=== PATIENT | male | born 1990 | race Caucasian/White ===

== ENCOUNTER 2020-07-04 11:32 | Emergency (ER) | payer BC ==
[~2020-07-04] VITALS: Ht 182.9 cm; Wt 106.8 kg
[2020-07-04] MEDS ORDERED: GEMF600T5 PO (11:43)
[2020-07-04] MEDS ORDERED: OMEP40CA97 PO (11:45)
[2020-07-04 12:21] LABS: BASO % 0.4 % (0.0-1.0); EOS % 0.6 % (0.0-3.0); HEMATOCRIT 44.3 % (42.0-52.0); HEMOGLOBIN 14.4 g/dl (13.5-17.5); LYMPH # 1.5 10^3/uL (1.5-5.0); MEAN CORPUSCULAR HEMOGLOBIN 27.9 pg (27.0-33.0); MEAN CORPUSCULAR HGB CONC 32.5 g/dl (32.0-36.5); MEAN CORPUSCULAR VOLUME 85.9 fl (80.0-96.0); MONO # 0.4 10^3/uL (0.0-0.8); MONO % 8.2 % (0.0-5.0); NEUTROPHILS # 2.8 10^3/uL (1.5-8.5); PLATELET COUNT, AUTOMATED 248 10^3/uL (150-450); RED BLOOD COUNT 5.16 10^6/uL (4.30-6.10); WHITE BLOOD COUNT 4.8 10^3/uL (4.0-10.0)
[2020-07-04 12:40] LABS: ALBUMIN 4.4 GM/DL (3.2-5.2); BILIRUBIN,DIRECT 0.1 MG/DL (0.0-0.2); BILIRUBIN,TOTAL 0.6 MG/DL (0.2-1.0); TOTAL PROTEIN 8.1 GM/DL (6.4-8.2)
[2020-07-04] MEDS ORDERED: ONDANSETRON 4MG/2ML VIAL IV ONE (12:45)
[2020-07-04] MEDS ORDERED: MORPHINE 4 MG/ML 1ML VIAL/SYRINGE (J2270) IV ONE ×2 (12:45→14:00)
[2020-07-04 12:48] LABS: BLOOD UREA NITROGEN 20 MG/DL (7-18); CALCIUM LEVEL 9.4 MG/DL (8.5-10.1); CARBON DIOXIDE LEVEL 27 MEQ/L (21-32); CHLORIDE LEVEL 105 MEQ/L (98-107); CREATININE FOR GFR 1.09 MG/DL (0.70-1.30); GLOMERULAR FILTRATION RATE > 60.0 (>60); GLUCOSE, FASTING 89 MG/DL (70-100); POTASSIUM SERUM 4.3 MEQ/L (3.5-5.1); SODIUM LEVEL 136 MEQ/L (136-145)
[2020-07-04] MEDS ORDERED: NS 1,000 ML IV ONE (13:00)
[2020-07-04 13:07] LABS: AMYLASE 117 U/L (25-115); CK-MB VALUE MASS 1.1 NG/ML (<3.6); CPK CREATINE PHOSPHOKINASE 133 U/L (39-308); MB/CK RELATIVE INDEX 0.83 (< OR =4); TROPONIN I < 0.02 NG/ML (< 0.10)
--- NOTE | 2020-07-04 14:02 | REP ---
INDICATION: RUQ pain COMPARISON: None. TECHNIQUE: Real time case scale ultrasound examination using curved array transducer. FINDINGS: Liver demonstrates increased parenchymal echotexture with scattered areas of focal fatty sparing. The pancreas is incompletely evaluated due to interposed bowel gas but visualized portions appear normal. The gallbladder is normal and without gallstones, wall thickening, or pericholecystic fluid. No biliary ductal dilatation is appreciated and the common bile duct measures 5.0 mm diameter. Right kidney is normal in reniform shape without hydronephrosis and measures 11.6 x 6.0 x 7.0 cm. No ascites in the visualized right upper quadrant. IMPRESSION: Hepatosteatosis with areas of focal fatty sparing. Normal gallbladder and biliary system. <Electronically signed by Harsh Huston > 07/04/20 [id number]
[2020-07-04] MEDS ORDERED: ISOVUE-370 76% 100ML VIAL As Ordered ONE (14:32)
[2020-07-04] MEDS ORDERED: KETOROLAC 30 MG/ML 1ML VIAL IV ONE ×2 (14:45→17:15)
--- NOTE | 2020-07-04 15:07 | REP ---
INDICATION: RUQ pain, h/o chronic pancreatitis. COMPARISON: None TECHNIQUE: Axial contrast-enhanced images from the lung bases to the pubic symphysis using 100 cc Isovue 370 intravenous contrast material. Coronal and sagittal reformations obtained. This CT examination was performed using the following dose reduction techniques: Automated exposure control, adjustment of mA and/or kv according to the patient's size, and the use of iterative reconstruction technique. FINDINGS: Lung bases are clear. Visualized heart and pericardium normal. Liver demonstrates fatty infiltration without focal hepatic lesion. Spleen, pancreas, gallbladder, bilateral adrenal glands and kidneys are normal. Incidental 2 mm nonobstructing right renal calculus noted. The enteric system including stomach, small, and large bowel appears normal. No evidence for obstruction or acute inflammatory process. Normal terminal ileum and appendix are identified in the right lower quadrant. Pelvis demonstrates normal bladder and age-appropriate prostate/seminal vesicles. No ascites. No free air. No intraperitoneal or retroperitoneal adenopathy. Abdominal aorta and vasculature appear normal. Musculoskeletal structures are intact and without acute osseous abnormality. IMPRESSION: 1. Hepatosteatosis. 2. 2 mm nonobstructing right renal calculus. 3. No acute abdominopelvic pathology appreciated. <Electronically signed by Harsh Huston > 07/04/20 [id number]
[2020-07-04] MEDS ORDERED: HYDROMORPHONE HCL 0.5 MG/ 0.5 ML SYRINGE (J1170 PER 1) IV ONE (16:00)
[2020-07-04 16:29] VITALS: BP 119/65
[2020-07-04] MEDS ORDERED: NORC1TAB7 PO (17:07)
[2020-07-04] MEDS ORDERED: ONDA4TAB6 PO (17:07)
== END 2020-07-04 17:23 | disposition left against medical advice (07) ==
LOC: EDBD 11:32 → M ED 11:32
DX: Z53.9 Procedure and treatment not carried out, unspecified reason (principal); K76.0 Fatty (change of) liver, not elsewhere classified; N20.0 Calculus of kidney; K85.90 Acute pancreatitis without necrosis or infection, unspecified; R10.11 Right upper quadrant pain; R11.2 Nausea with vomiting, unspecified; R19.7 Diarrhea, unspecified; K21.9 Gastro-esophageal reflux disease without esophagitis; Z87.442 Personal history of urinary calculi; Z79.899 Other long term (current) drug therapy; Z88.0 Allergy status to penicillin
CPT/HCPCS: 36415; 74177; 76705; 80048; 80076; 81001; 82150; 82550; 82553; 83690; 85025; 96361; 96374; 96375; 96376; 99284; J1170; J1885; J2270; J2405; Q9967